=== PATIENT | male | born 1945 | race Caucasian/White ===

== ENCOUNTER 2016-07-05 14:36 | Emergency (ER) | payer OTHER ==
[~2016-07-05] VITALS: Ht 177.8 cm; Wt 117.3 kg
[~2016-07-05 14:36] MED LIST: CITALOPRAM HBR40 MG PO; GABAPENTIN600 MG PO; METFORMIN HCL500 M1 PO; METOPROLOL SUCC25 MG PO; PANTOPRAZOLE SO20 MG PO; PRAVASTATIN SOD80 MG PO; TAMSULOSIN HCL0.4 MG PO
[2016-07-05 15:45] LABS: MCH 30.3 PG (29.0-34.0); MCHC 33.4 G/DL (30.0-36.0); MCV 90.7 FL (86-99); MEAN PLAT.VOLUME 10.5 uM^3 (9.0-12.4); PLATELET COUNT 135 K/uL (156-360); RBC DIS.WIDTH-CV 13.8 % (11.8-14.6); RBC DIS.WIDTH-SD 44.6 % (39-53); RED BLOOD COUNT 3.86 M/uL (4.00-5.50); WHITE BLOOD COUNT 9.5 K/uL (4.1-10.2)
[2016-07-05 15:59] LABS: CHLORIDE 102 mEq/L (99-109); SODIUM 139 mEq/L (136-147)
[2016-07-05 16:01] LABS: GLUCOSE 135 mg/dL (70-99)
[2016-07-05 16:02] LABS: ANION GAP 12 MEQ/L (2-14)
[2016-07-05 16:03] LABS: TOTAL BILIRUBIN 0.9 mg/dL (0.0-1.0)
[2016-07-05 16:04] LABS: ALKALINE PHOSPHATASE 94 IU/L (3-129)
[2016-07-05 16:05] LABS: GFR ESTIMATE (CALCULATED) 49 mL/min/
[2016-07-05 16:06] LABS: UREA NITROGEN (BUN) 29 mg/dL (9-23)
[2016-07-05 16:11] LABS: D-DIMER ELISA 1.42 mg/L FEU (< 0.57)
[2016-07-05 16:29] LABS: LIPASE 33 U/L (1.0-51.0)
[2016-07-05] MEDS ORDERED: FISH OIL 1,001000 M2 PO (17:11)
[2016-07-05] MEDS ORDERED: CINNAMON500 MG PO (17:11)
[2016-07-05] MEDS ORDERED: VITAMIN D2000 UNI1 PO (17:12)
[2016-07-05 17:43] LABS: ADD MIUA? YES; BILIRUBIN NEGATIVE; BLOOD TRACE; COLOR YELLOW ((YELLOW)); GLUCOSE (STRIP) NEGATIVE; KETONES NEGATIVE; LEUKOCYTES NEGATIVE; NITRITE NEGATIVE; PROTEIN (STRIP) TRACE
[2016-07-05 18:23] LABS: BACTERIA NONE SEEN; CASTS NONE SEEN /LPF; CRYSTALS NONE SEEN; EPITHELIAL CELLS NONE SEEN; MUCUS NONE SEEN; RED BLOOD CELLS RARE /HPF (0-5); UCUL ADDED? NO; WHITE BLOOD CELLS RARE /HPF (0-5)
[2016-07-05 21:41] VITALS: BP 123/72
== END 2016-07-05 21:48 | disposition home or self-care (01) ==
LOC: EME 14:36
DX: R42 Dizziness and giddiness (principal); R10.31 Right lower quadrant pain; R10.11 Right upper quadrant pain; R51 Headache
CPT/HCPCS: 70450; 71275; 74177; 80053; 81003; 83690; 85027; 85379; 85610; 85730; 93005; 99281; 99285; J7030